=== PATIENT | male | born 1940 ===

== ENCOUNTER → 2016-11-20 | Outpatient (CLI) | payer MEDICARE, OTHER ==
[~2016-11-20] MED LIST: ADVIL200 MG PO; ALTACE10 MG; ALTACE2.5 MG PO; ASPIR 8181 MG PO; ASPIRIN LO-DOSE81 MG PO; CRESTOR10 MG; CRESTOR20 MG PO; CRESTOR40 MG PO; DOK100 MG PO; FEOSOL325 MG PO; NITROSTAT0.4 MG SL; PERCOCET 5-3251 EACH PO; PRILOSEC10 MG; PRILOSEC20 MG PO; THERAGRAN-M1 TAB PO; TOPROL XL25 MG PO; TYLENOL EXTRA500 MG PO; XARELTO15 MG PO
== END | disposition disaster alternative care site (69) ==
LOC: GRAD 09:27
DX: M54.30 Sciatica, unspecified side (principal); M51.36 Other intervertebral disc degeneration, lumbar region

== ENCOUNTER → 2016-12-22 | Outpatient (CLI) | payer MEDICARE, OTHER ==
--- NOTE | ~2016-12-22 | ENPV ---
Vascular Lower Extremities DVT Study Procedure Demographics Patient Name SALENA CHILDERS Date of Study 12/22/2016 Patient Number [id number] Gender Male Date of 1940 Age 76 Visit Number [id number] Height Accession Number [id number] Weight Room Number BSA BMI Referring Jaron Zhou MD Interpreting Gigi Clarke MD Physician Physician Physician Ordering Jaron Zhou End Finder Twisting Department Physician Lettuce Cutter De Urias T, [facility] Conclusions Summary There is sub-acute partially occlusive deep vein thrombosis in the right proximal superficial femoral vein extending into the popliteal vein. There is sub-acute occlusive deep vein thrombosis in the left proximal superficial femoral vein extending into the popliteal vein. Cannot rule out small calf thrombi bilaterally. Procedure Type of Study: Veins:Lower Extremities DVT Study, Lower Extremity Left, Venous Duplex Lower Extremity Bilateral. Indications for Study:Pain in Limb and Swelling. Appropriate Use Criteria:7 Patient Status:Routine. Study Location:Vascular Lab. Technical Quality:Adequate visualization. - Preliminary reported to:Dr. Leif Salmeron at 1445. Velocities are measured in cm/s ; Diameters are measured in cm Right Lower Extremities DVT Study Measurements Right 2D and Doppler Measurements + + + + +------+------+ + !Location !Visualized!Compressibility!Thrombosis!Signal!Reflux!Reflux ! ! ! ! ! ! ! !(sec) ! + + + + +------+------+ + !GSV Thigh !Yes !Yes !None !Phasic! ! ! + + + + +------+------+ + !Common !Yes !Yes !None !Phasic! ! ! !Femoral ! ! ! ! ! ! ! + + + + +------+------+ + !Prox !Yes !Partial !Sub-acute !Phasic! ! ! !Femoral ! ! ! ! ! ! ! + + + + +------+------+ + !Mid Femoral!Yes !Partial !Sub-acute !Absent! ! ! + + + + +------+------+ + !Dist !Yes !Yes !None !Phasic! ! ! !Femoral ! ! ! ! ! ! ! + + + + +------+------+ + !Popliteal !Yes !No !Sub-acute !Absent! ! ! + + + + +------+------+ + !PTV !Yes !Yes !None !Phasic! ! ! + + + + +------+------+ + !Peroneal !Yes !Yes !None !Phasic! ! ! + + + + +------+------+ + Left Lower Extremities DVT Study Measurements Left 2D and Doppler Measurements +---------+ + + + +------+--------+ !Location !Visualized!Compressibility!Thrombosis!Signal !Reflux!Reflux ! ! ! ! ! ! ! !(sec) ! +---------+ + + + +------+--------+ !GSV Thigh!Yes !Yes !None !Phasic ! ! ! +---------+ + + + +------+--------+ !Common !Yes !Partial !Sub-acute !Continuous! ! ! !Femoral ! ! ! ! ! ! ! +---------+ + + + +------+--------+ !Prox !Yes !No !Sub-acute !Absent ! ! ! !Femoral ! ! ! ! ! ! ! +---------+ + + + +------+--------+ !Mid !Yes !No !Sub-acute !Absent ! ! ! !Femoral ! ! ! ! ! ! ! +---------+ + + + +------+--------+ !Dist !Yes !No !Sub-acute !Absent ! ! ! !Femoral ! ! ! ! ! ! ! +---------+ + + + +------+--------+ !Popliteal!Yes !No !Sub-acute !Phasic ! ! ! +---------+ + + + +------+--------+ !PTV !Yes ! ! ! ! ! ! +---------+ + + + +------+--------+ !Peroneal !Yes ! ! ! ! ! ! +---------+ + + + +------+--------+ Signature dtt: MARSHALL PIERRE: 12/22/16 1412 Physician Self Edit
== END | disposition disaster alternative care site (69) ==
LOC: GCAR 13:52
DX: I80.9 Phlebitis and thrombophlebitis of unspecified site (principal); I82.411 Acute embolism and thrombosis of right femoral vein; I82.431 Acute embolism and thrombosis of right popliteal vein; I82.412 Acute embolism and thrombosis of left femoral vein; I82.432 Acute embolism and thrombosis of left popliteal vein

== ENCOUNTER 2017-01-01 09:53 | Inpatient (IN) | payer MEDICARE, OTHER ==
[~2017-01-01] VITALS: Ht 182.9 cm; Wt 84.4 kg
--- NOTE | ~2017-01-01 | ECHO ---
Transthoracic Echocardiography Report (TTE) Demographics Patient Name SALENA CHILDERS Date of Study 01/03/2017 Patient Number [id number] Visit Number [id number] Date of 1940 Room Number G6313 Gender Male Number Age 76 year(s) Referring Enriqueta Dozier Chaser Helper Jerardo Sheppard Physician MD Lili Zhou MD Physician Interpreting Enriqueta Dozier Web Application Developer Physician Supervising Ordering Enriqueta Dozier MD/MLP Physician Nurse Stress Cotton Candy Maker Conclusions Contractility Score Summary Normal Left Ventricular contractility was noted. Summary The estimated left ventricular ejection fraction is 50-55%,WM and internal dimension.Mild septal left ventricular hypertrophy. There is mild aortic stenosis by the Continuity Equation. The peak velocity is 2.17 m/s, the mean gradient is 9 mmHg, and the valve area based on the continuity equation is 1.77 cm2, stroke volume index is 32 ml/m2. The ascending aorta appears severely dilated. The maximum diameter measures 3.9 cm. Procedure Type of Study TTE procedure:2D Echocardiogram, M-Mode, Doppler , Color Doppler. Procedure Date Date: 01/03/2017 Start: 02:21 PM Study Location: Inpatient Portable Technical Quality: Adequate visualization Indications:Chest pain. Appropriate Use Criteria: 9 Patient Status: STAT HR: 67 bpm BP: 121/63 mmHg M-Mode/2D Measurements LV Diastolic Dimension: 5.87 cm LV Systolic Dimension: 3.36 cm LV Septum Diastolic: 1.17 cm LV PW Diastolic: 1.03 cm AO Root Dimension: 2.9 cm Cardiac Output: 4.48 l/min LA Dimension: 3 cm EF Estimated: 55 % LVOT: 2 cm LVOT VTI: 21.3 cm RV Base: 2.2 cm LV Stroke volume: 66.88 ml RV Length: 7.14 cm TAPSE: 1.39 cm TDI-S': 15.9 cm/s Doppler Measurements AV Peak Velocity: 2.17 m/s MV Peak E-Wave: 0.63 m/s AV Peak Gradient: 18.84 mmHg MV Peak A-Wave: 0.98 m/s AV Mean Gradient: 9 mmHg MV E/A Ratio: 0.64 LVOT Peak Velocity: 1.09 m/s MV P1/2t: 72 msec TR Gradient:22.66 mmHg PV Peak Velocity: 1.23 m/s Estimated RAP:5 mmHg PV Peak Gradient: 6.05 mmHg Estimated RVSP: 28 mmHg Estimated PASP: 27.66 mmHg E' Septal Velocity: 0.08 m/s A' Septal Velocity: 0.13 m/s E' Lateral Velocity: 0.05 m/s A' Lateral Velocity: 0.16 m/s Findings Left Ventricle The left ventricle is normal in size,EF and WM.Mild septal left ventricular hypertrophy. Right Ventricle Normal right ventricle structure and function. Left Atrium Normal left atrial size. Right Atrium Normal right atrial size. Mitral Valve Normal mitral valve structure and function. Aortic Valve The aortic valve is moderately sclerotic. There is mild aortic stenosis by the Continuity Equation. The peak velocity is 2.17 m/s, the mean gradient is 9 mmHg, and the valve area based on the continuity equation is 1.77 cm2, stroke volume index is 32 ml/m2. Tricuspid Valve Trivial tricuspid regurgitation by color Doppler. Pulmonic Valve Normal pulmonic valve structure and function. Pericardial Effusion No evidence of pericardial effusion. Miscellaneous The ascending aorta appears severely dilated. The maximum diameter measures 3.9 cm. Suboptimal subcostal window to evaluate the IVC and interatrial septum. Pleural Effusion No evidence of pleural effusion. Contractility Score LV regional wall motion:(0-Non visualized 1-Normal 2-Hypokinesis 3-Akinesis 4-Dyskinesis 5-Aneurysm) Signature dtt: Tasia Robison: 01/03/17 1421 Physician Self Edit
--- NOTE | ~2017-01-01 | PN ---
PATIENT'S NAME: SALENA CHILDERS [facility] AGE: 76 Y [address] ROOM: [facility] [place] [address] LOCATION: GPCU ADMIT DATE: 01/01/2017 Progress Notes DISCHARGE DATE: FAMILY PHYSICIAN: SARAH TEJADA MD ATTENDING PHYSICIAN: Loyda Pearson DATE OF SERVICE: 01/06/2017 This patient's H and H, and coagulation profile is stable. He has had no further chest pain but he will be having a cardiac catheterization after I evaluate his propensity for bleeding with respect to his hemorrhoidal disease as requested. His examination is stable. He will have his endoscopy and proctosigmoidoscopy today. MD MONSE AGUILAR/scotty /[id number] d: 01/06/17 0755 t: 01/31/17 1101, PROGRESS NOTES
--- NOTE | ~2017-01-01 | PN ---
PATIENT'S NAME: SALENA CHILDERS [facility] AGE: 76 Y [address] [place] [facility] [place] [address] LOCATION: GPCU ADMIT DATE: 01/01/2017 Progress Notes DISCHARGE DATE: FAMILY PHYSICIAN: SARAH TEJADA MD ATTENDING PHYSICIAN: Loyda Pearson DATE OF SERVICE: 01/07/2017 This patient had a reasonable night, tolerated his procedure well. He has had no bleeding or significant hemorrhoidal symptomatology. His laboratory values are stable and have been reviewed. He is planned to have a cardiac catheterization tomorrow. I would advise, at some point, him to have elastic band ligation of his grade 2-3 hemorrhoidal disease. MD MONSE AGUILAR/scotty /[id number] d: 01/07/17 0800 t: 01/31/17 1104, PROGRESS NOTES
--- NOTE | ~2017-01-01 | OR ---
PATIENT'S NAME: SALENA CHILDERS [facility] AGE: 76 Y [address] ROOM: [facility] [place] [place], [place] [address] LOCATION: GPCU ADMIT DATE: 01/01/2017 OR/Procedure Report DISCHARGE DATE: FAMILY PHYSICIAN: SARAH TEJADA MD ATTENDING PHYSICIAN: Loyda Villanueva SURGEON: Loyda Villanueva MD MARKETING STRATEGY ANALYST: Didi Tee. DATE OF PROCEDURE: 01/02/2017 PREOPERATIVE DIAGNOSIS: Lumbar spinal stenosis. POSTOPERATIVE DIAGNOSIS: Lumbar spinal stenosis. PROCEDURE PERFORMED: 1. Bilateral laminectomy with foraminotomy and decompression of neural elements without diskectomy at L3-L4. 2. Bilateral laminectomy with foraminotomy and decompression of neural elements without diskectomy at L4-L5. 3. Use of intraoperative microscope. ANESTHESIA: General. HISTORY: The patient is a 76-year-old gentleman with complaints of low back pain. MRI scan showed significant spinal stenosis at L3-L4 and L4-L5. Symptoms were becoming incapacitating per patient and surgery was therefore recommended. The procedure of laminectomy was discussed with the patient, benefits and risks were explained. With the patient's consent, he was brought to the operating room for surgery. PROCEDURE IN DETAIL: In the operating room, the patient was placed in a supine position. Anesthesia was induced. He was intubated and a Costello catheter was placed. He was then turned to a prone position on a Hi table taking care to protect all pressure points. The incision line was marked out in the midline of his lower back. The whole area was prepped and draped in a sterile fashion. Local anesthesia was infiltrated. The #10 blade was used to open the incision and to deepen it to the fascial layer. Self- retaining retractors were placed. The fascia was opened and the incision deepened further until the tips of the spinous processes became visible. Paraspinous muscles were dissected off the spinous processes and laminae of L3, L4, and L5. Self-retaining retractors were adjusted. Intraoperative x- ray was obtained to confirm that we were at the desired levels. The drill was used to drill down the laminae bilaterally at L3, L4, and L5. The Leksell rongeur was used to remove the laminae and spinous processes. The dura became visible. PATIENT'S NAME: SALENA CHILDERS [facility] AGE: 76 Y [address] ROOM: [place] [address] LOCATION: GPCU ADMIT DATE: 01/01/2017 OR/Procedure Report DISCHARGE DATE: FAMILY PHYSICIAN: SARAH TEJADA MD ATTENDING PHYSICIAN: Loyda Villanueva Findings: The patient had significant stenosis particularly at L4-L5. His bone was also quite soft and the patient may have osteoporosis. Laminectomy was then carried out bilaterally at L3, L4, and L5. The microscope was brought in, and under microscopic vision, the laminectomy was extended by shaving down the medial edges of the facets. The disks were seen that were bulging at L3-L4 and L4-L5 but not causing any compression as the laminae had already been removed on the back. The nerve roots were identified at L3-L4 and L4-L5 and foraminotomies were performed until the nerve roots could be seen going out into their respective foramina. Hemostasis was maintained at all times using bone wax, fibrillar, and Surgicel. Irrigation was used to wash out the debris. Having completed the laminectomy, a final check was made in the foramina and there was no residual compression seen. The incision was then closed in layers using appropriate suture materials. A sterile dressing was applied. The patient was rolled back to a supine position. His anesthesia was reversed. He was extubated and taken to the recovery room to complete his recovery. I was present during this procedure and performed every aspect of it, assisted at some stages by operating room personnel. There were no apparent intraoperative complications. Swabs, needles, and instruments were all accounted for at the end of the case. Estimated blood loss was less than 200 mL and there was no reason for blood transfusion. I expect the patient to benefit from this procedure. LOYDA VILLANUEVA MD CNO/modl /[id number] d: 01/05/17 0032 t: 01/12/17 0903, OPERATIVE SUMMARY
--- NOTE | ~2017-01-01 | CON ---
PATIENT'S NAME: SALENA CHILDERS [facility] AGE: 76 Y [address] ROOM: [address] [place] [address] LOCATION: GPCU ADMIT DATE: 01/01/2017 Consultation DISCHARGE DATE: FAMILY PHYSICIAN: SARAH TEJADA MD ATTENDING PHYSICIAN: Loyda Pearson REFERRING PHYSICIAN: MARSHALL PIERRE MD This is a patient who had a laminectomy, L3 to L5. He had bilateral deep venous thrombosis in which he had an IVC filter placed. However, he developed chest pain and was given nitroglycerin. Stress test and evaluation is in progress. He has not had a cardiac catheterization, which is planned. I have been asked by his physicians to evaluate him in terms of his known hemorrhoidal disease, whether possible anticoagulation following this would be an issue. The patient has had stents before. He is on Xarelto and aspirin. I have reviewed with him. He has had longtime hemorrhoidal problems. He did have a bowel movement today without blood, and I have checked his laboratory values which show reasonable hematocrit and no coagulopathy. When I examined him, he did not have any masses. He had external tags, and he has never had ginger hematochezia or melena. He states he has had a colonoscopy. PLAN: Doing an anoscopy and proctosigmoidoscopy tomorrow, and we will evaluate this. MD MONSE AGUILAR/scotty /[id number] d: 01/05/17 1838 t: 01/06/17 0740, CONSULTATION REPORT
--- NOTE | ~2017-01-01 | DS ---
PATIENT'S NAME: SALENA CHILDERS [facility] AGE: 76 Y [address] ROOM: [address] [place] [address] LOCATION: GPCU ADMIT DATE: 01/01/2017 Discharge Summary DISCHARGE DATE: 01/09/2017 FAMILY PHYSICIAN: Sarah Salmeron MD ATTENDING PHYSICIAN: Loyda Pearson FINAL DIAGNOSES: 1. Low back pain, persistent. 2. Status post lumbar back surgery per Dr. Pearson (see operative note). 3. Deep venous thrombosis bilateral, chronic, status post IVC filter after admission to prevent pulmonary emboli, Dr. Yu, see operative note. 4. Chest pain with abnormal stress echo, status post heart catheterization per Dr. Robison, nonobstructive coronary disease, requiring no intervention, see procedure note. 5. Hyperlipidemia. 6. Hypertension, essential. 7. Coronary artery disease, stable. 8. History of bilateral deep venous thrombosis, chronic. 9. Internal hemorrhoid disease. PROCEDURES: Proctoscopy and anoscopy per Dr. Wyatt Campos. HOSPITAL COURSE: Salena Childers had been seen as an outpatient by Dr. Pearson. He had also in the last several months been on Xarelto for DVT in his leg after falling and breaking his leg. He had been noncompliant with his Xarelto because he had intermittent hemorrhoid bleeding. In the outpatient area then he was set up for further evaluation and decision is to be made prior to his back surgery. Ended up being seen by Dr. Yu and was admitted from Dr. Yu's clinic to have his IVC filter placed. After that was done Dr. Pearson found time and schedule to take the patient to the operating room and performed his lumbar back surgery. The patient after back surgery developed chest pain, was seen at my request by Dr. Robison. Because of the patient's hemorrhoid bleeding report as an outpatient, I did have the patient seen by a local general surgeon Dr. Wyatt Campos. The patient underwent anoscopy, rigid proctoscopy showing internal hemorrhoid disease that could be banded as an outpatient, but no other mass or lesion was noted. Note, the patient had a recent colonoscopy that was otherwise normal. The patient was eventually then the day prior to dismissal taken to the labor economist per Dr. Robison and found to have nonobstructive coronary artery disease. The patient has met maximal hospital benefit. He is dismissed today 01/09/2017, to home on the med list shown. He should follow up in the office in a week. Follow up with the specialist as indicated per their notes. If he has chest pain, shortness of breath, or rectal bleeding, he will be seen back earlier. He did go back to [facility]. PATIENT'S NAME: SALENA CHILDERS [facility] AGE: 76 Y [address] ROOM: [place] [address] [facility] ADMIT DATE: 01/01/2017 Discharge Summary DISCHARGE DATE: 01/09/2017 FAMILY PHYSICIAN: Sarah Salmeron MD ATTENDING PHYSICIAN: Loyda Pearson SARAH SALMERON MD SWEAT BAND SEWER/modl /[id number] d: 01/09/171741 t: 01/14/17 1022, DISCHARGE SUMMARY
--- NOTE | ~2017-01-01 | OR ---
PATIENT'S NAME: SALENA CHILDERS [facility] AGE: 76 Y [address] ROOM: [place] [address] LOCATION: GPCU ADMIT DATE: 01/01/2017 OR/Procedure Report DISCHARGE DATE: FAMILY PHYSICIAN: SARAH TEJADA MD ATTENDING PHYSICIAN: Loyda Pearson SURGEON: Wyatt Campos MD MACHINE CONTAINER WASHER: DATE OF PROCEDURE: 01/06/2017 PREOPERATIVE DIAGNOSES: 1. Need for cardiac catheterization and probable anticoagulation. 2. History of internal hemorrhoids. POSTOPERATIVE DIAGNOSES: 1. Need for cardiac catheterization and probable anticoagulation. 2. History of internal hemorrhoids. 3. Grade 2 to 3 nonbleeding internal hemorrhoids. 4. External hemorrhoidal tags. PROCEDURES PERFORMED: 1. Digital examination. 2. Proctosigmoidoscopy. 3. Anoscopy. ANESTHESIA: None. INDICATIONS FOR OPERATION: This is a patient who had a laminectomy followed by some chest pain. He has been evaluated by the hub cutter. He requires a cardiac catheterization, and I have been asked to evaluate his degree of hemorrhoidal disease, which is well known in this patient, because of probability of post-angiographic intervention anticoagulation. The patient has had a long history of hemorrhoids and has had a negative colonoscopy otherwise. He presents for appropriate evaluation. DESCRIPTION OF PROCEDURE: The patient was brought to the operating room where he was placed in the left lateral decubitus position. Examination revealed external hemorrhoidal tags. Digital examination revealed no blood. No masses. At this point, proctosigmoidoscopy was performed to 7 inches. There was stool proximally. There was no blood. There were no masses. The mucosa looked satisfactory. As I withdrew, I could see hemorrhoidal disease. At this point, anoscopy was performed which showed grade 2 to 3 internal hemorrhoids, currently not bleeding. The scope was removed. The patient tolerated the procedure satisfactorily. From my perspective, certainly it is appropriate to proceed with cardiac catheterization, etc. At some point, he should have elastic band ligation of his hemorrhoids. PATIENT'S NAME: SALENA CHILDERS [facility] AGE: 76 Y [address] ROOM: [place] [address] LOCATION: GPCU ADMIT DATE: 01/01/2017 OR/Procedure Report DISCHARGE DATE: FAMILY PHYSICIAN: SARAH TEJADA MD ATTENDING PHYSICIAN: Loyda Pearson N MD MONSE AGUILAR/modl /[id number] d: 01/06/17 1200 t: 01/06/17 1726, OPERATIVE SUMMARY
--- NOTE | ~2017-01-01 | OR ---
PATIENT'S NAME: SALENA CHILDERS [facility] AGE: 76 Y [address] ROOM: [place] [address] LOCATION: [facility] ADMIT DATE: 01/01/2017 OR/Procedure Report DISCHARGE DATE: FAMILY PHYSICIAN: SARAH TEJADA MD ATTENDING PHYSICIAN: Loyda Pearson SURGEON: Vince Yu MD ENGINEERING ILLUSTRATOR: DATE OF PROCEDURE: 01/01/2017 PREOPERATIVE DIAGNOSIS: Deep venous thrombosis, unable to anticoagulate. POSTOPERATIVE DIAGNOSIS: Deep venous thrombosis, unable to anticoagulate. PROCEDURE PERFORMED: IVC filter placement. TOOL PLANNER: Joaquina Woodard ANESTHESIA: MAC local. ESTIMATED BLOOD LOSS: 5 mL. OPERATIVE FINDINGS: Filter in good position at the level of the renals. DESCRIPTION OF PROCEDURE: The patient was brought to the packing house laborer, placed supine on packing house laborer table, prepped and draped in a sterile manner. Preoperative time-out was performed. We gained access using ultrasound guidance to the right common femoral vein. We passed a NuScriptRxson wire through the 18-gauge needle. We then used a 10-Greek dilator to dilate the tract. We then brought the deployment sheath into position. We performed a venogram to identify the location of the renal vessels. Brought the filter at the level of the renal vessels and deployed it with a good upright position. Sheath was removed. Pressure was held for 10 minutes. The patient tolerated the procedure well and transferred to recovery room and then back to the floor. VINCE YU MD FKM/modl /[id number] d: 01/02/175 t: 01/03/17 1715, OPERATIVE SUMMARY
--- NOTE | ~2017-01-01 | CON ---
PATIENT'S NAME: SALENA CHILDERS [facility] AGE: 76 Y [address] ROOM: G6313 [place], [place] [address] LOCATION: GPCU ADMIT DATE: 01/01/2017 Consultation DISCHARGE DATE: FAMILY PHYSICIAN: SARAH TEJADA MD ATTENDING PHYSICIAN: Loyda Pearson DATE OF CONSULTATION: 01/03/2017 REFERRING PHYSICIAN: MARSHALL PIERRE MD Dear Dr. Pearson: Thank you for asking me to see Mr. Childers who is a 76-year-old male patient who underwent spinal stenosis surgery yesterday. Today in Neurotrauma Unit, he was eating his lunch which was a dry turkey sandwich which started to cause him significant lower chest pain associated with some shortness of breath. The patient at that time called the nurse, and an EKG was done, which showed no evidence of ST-T wave changes. I was called to see him on consultation. Because he had surgery yesterday and it was followed by a fair amount of oozing, heparin was considered to be not a good idea. He was, however, given four baby aspirins and a single sublingual nitroglycerin, which lowered the chest discomfort from 6 to 4. He was transferred to PCU where he was initiated on IV nitroglycerin which lowered the pain level to less than 1 at this time. Currently, he is pain-free. The patient has no history of shortness of breath. 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 He is in functional class 2 with no paroxysmal nocturnal dyspnea or orthopnea. He denies lightheadedness, dizziness, syncope, presyncope, or palpitations. There is no history of ankle swelling. He is not on any structured exercise program, but he is active in his line of work. There is no prior history of MN or angina or nitroglycerin use. The patient has had stents put in in 2009 and 2010. The patient has no history of hypertension, type 2 diabetes, elevated cholesterol, or tobacco abuse. He denies family history of premature coronary artery disease. There is no prior history of MN, angina, or nitroglycerin use. There is no history of rheumatic fever, heart murmur, heart failure, dilated or enlarged heart, or any diagnosed arrhythmias. MEDICATIONS: 1. Omeprazole 20 mg a day. PATIENT'S NAME: SALENA CHILDERS [facility] AGE: 76 Y [address] ROOM: [place] [address] LOCATION: GPCU ADMIT DATE: 01/01/2017 Consultation DISCHARGE DATE: FAMILY PHYSICIAN: SARAH TEJADA MD ATTENDING PHYSICIAN: Loyda Pearson 2. Ramipril 2.5 mg a day. 3. Aspirin 81 mg a day. 4. Rosuvastatin 40 mg a day. 5. Rivaroxaban 15 mg once a day. 6. Ibuprofen 200 mg every day. 7. Nitroglycerin as needed. 8. Acetaminophen 500 mg once a day. 9. Docusate sodium 100 mg a day. ALLERGIES: TETRACYCLINE. PAST MEDICAL HISTORY: 1. Right femoral fracture about a year ago. 2. Appendectomy. 3. Bilateral carpal tunnel surgery. 4. Three stents placed. 5. Hernia repair. 6. Removal of a testicle. 7. Surgery on the remaining testicle for swelling. SOCIAL HISTORY: The patient is . He denies abusing alcohol. His appetite and weight are stable. Sleep is fair. FAMILY HISTORY: No premature coronary artery disease. REVIEW OF SYSTEMS: A 12-point review of systems revealed the following positives. 1. Hay fever. 2. Dysphagia. 3. DVT, both lower extremities, which is old. There is no new DVT noticed. 4. Nocturia. 5. DJD. 6. Skin cancer. PHYSICAL EXAMINATION: VITAL SIGNS: On examination, his blood pressure is 130/80, heart rate is in the 60s and regular, respirations 18, afebrile. HEENT: Normal. NECK: Supple with no JVD, thyromegaly, lymphadenopathy, or carotid bruit. HEART: PMI is not well located. First and second heart sounds are regular. There are no added sounds. CHEST: Clear. PATIENT'S NAME: SALENA CHILDERS [facility] AGE: 76 Y [address] ROOM: [place] [address] LOCATION: GPCU ADMIT DATE: 01/01/2017 Consultation DISCHARGE DATE: FAMILY PHYSICIAN: SARAH TEJADA MD ATTENDING PHYSICIAN: Loyda Pearson ABDOMEN: Soft. EXTREMITIES: No edema. CENTRAL NERVOUS SYSTEM: Intact. ASSESSMENT: A 76-year-old male patient with known coronary artery disease, on appropriate statin therapy, postoperatively having prolonged chest pain. We will rule him out for MN and get an echocardiogram done. If he rules out for MN, we will plan on doing a stress Cardiolite study tomorrow in the form of a Lexiscan Cardiolite study. Again, I appreciate this opportunity to participate in the care of Mr. Childers. MD HERVE ORTA/scotty /[id number] d: 01/04/17 0006 t: 01/10/17 1058, CONSULTATION REPORT
--- NOTE | ~2017-01-01 | CON ---
PATIENT'S NAME: SALENA CHILDERS [facility] AGE: 76 Y [address] ROOM: [place] [address] LOCATION: GPCU ADMIT DATE: 01/01/2017 Consultation DISCHARGE DATE: FAMILY PHYSICIAN: SARAH TEJADA MD ATTENDING PHYSICIAN: Loyda Pearson REFERRING PHYSICIAN: MARSHALL PIERRE MD HISTORY OF PRESENT ILLNESS: This is a gentleman who underwent laminectomy L3 to L5 a few days ago. He had an IVC filter placed for bilateral DVT. He has had, however, chest pain. He is in the process of being evaluated with a stress test, and they plan on catheterization, but would like evaluation of his known hemorrhoidal disease. He is on Xarelto and aspirin. He is not on Coumadin. On discussing with the patient, the patient has had a longstanding history of hemorrhoidal bleeding. He has been evaluated. He does not have a colonic process or an upper tract process. He has never been treated for his hemorrhoids. He is bothered by them quite a bit. He has had no abdominal surgery except for appendectomy. MEDICATIONS: Reviewed. ALLERGIES: REVIEWED. REVIEW OF SYSTEMS: Fourteen points surgically noncontributory. PHYSICAL EXAMINATION: VITAL SIGNS: Afebrile. Vital signs stable. GENERAL: Looks well. Color good. CHEST: Clear. ABDOMEN: Negative. EXTREMITIES: Negative. RECTAL: Significant external tags. Digital examination is negative for masses, and no blood. PLAN: Check CBC and coagulation profile. He will have anoscopy and rigid proctosigmoidoscopy tomorrow. JOE FIELDS MD /modl PATIENT'S NAME: SALENA CHILDERS [facility] AGE: 76 Y [address] ROOM: [place] [address] LOCATION: GPCU ADMIT DATE: 01/01/2017 Consultation DISCHARGE DATE: FAMILY PHYSICIAN: SARAH TEJADA MD ATTENDING PHYSICIAN: Loyda Pearson /[id number] d: 01/05/17 1605 t: 01/06/17 0737, CONSULTATION REPORT
--- NOTE | ~2017-01-01 | ESTC ---
Cardiac Perfusion Imaging Demographics Patient Name LISETH Zhou Gender Male Patient Number [id number] Race Visit Number [id number] [place] [id number] Room Number G6313 Accession Number [id number] Height 72 inches Date of 1940 Weight 186.3 pounds Interpreting Enriqueta Dozier Date of study 01/04/2017 Physician Supervising /DARRELL MARROQUIN Technologist Ellie Gomez MD Ordering Physician Enriqueta Dozier Stress MD application support technician Stress ECG Reading Enriqueta Dozier Nurse Janet Santa Physician puller out Admit Source:Emergency department. Procedure Type: Nuclear Stress Test:Pharmacological, Lexiscan, Cardiolite Stress Test Procedure Start time: 01/04/2017 09:19 Indications: Chest tightness. Risk Factors The patient risk factors include:prior PCI on 10/27/2009;peripheral arterial disease, hypercholesterolemia, hypertension, last creatinine: 1.1 mg/dl, dyslipidemia, prior SD and creatinine clearance: 66.15 ml/min. Conclusions Summary No TID. Small inferolateral moderate reversible defect. LVEF:60% Normal wall motion. Stress Protocols Resting ECG RSR. Pre-stress physical exam: Un changed. Peak HR:98 bpm HR/BP product:[id number] Peak BP:162/89 mmHg Predicted HR: 142 bpm % of predicted HR: 69 ECG Findings No ischemia. Arrhythmias Bigeminal PVCs. Symptoms SOB. Nausea.Vomitted once. Cold. Tight in chest:2 to 3 on 1-10. Stress Interpretation Lexiscan with normal hemodynamic response. Chest pain,SOB and nausea. No ischemia. Bigeminal PVCs. Imaging Results High risk findings Summed scores - Summed stress score: 8 - Summed rest score: 14 - Summed difference score: -6 Stress ejection Ejection fraction:60 % EDV :158 ml ESV :63 ml Stroke volume :95 ml LV mass :167 gr LV size:Normal Normal LV function Imaging Protocols Rest Stress Isotope:Tc99m Sestamibi IV Isotope: Tc99m Sestamibi IV Isotope dose:12.5 mCi Isotope dose:35.4 mCi Date:01/04/2017 07:52 Date:01/04/2017 09:40 Technique: SPECT Technique: Gated Supine SPECT Supine IV remains in place after procedure. Scan Time:45-60 minutes post Scan Time:45-60 minutes post injection injection Procedure Medications - Regadenoson (Lexiscan) 0.4 mg IV over 10-15 sec. I.V. 0.4 mg. Medical History Other Previous Procedures + + +-------+ !Test name !Date !Remarks! + + +-------+ !Stress testing with SPECT MPI !01/03/2017! ! + + +-------+ Admission Medications + +------+ + + +---------+ !Name !Dosage!Times per day !Start date !Stop date !Details ! + +------+ + + +---------+ !Aspirin (any) ! ! ! ! ! ! + +------+ + + +---------+ !Clopidogrel ! ! ! ! ! ! + +------+ + + +---------+ !Beta Felipe (any) ! ! ! ! ! ! + +------+ + + +---------+ !Statin (any) ! ! ! ! ! ! + +------+ + + +---------+ Admission Data Admission date: 01/01/2017 Admission Time: 09:53 Hospital Status: Inpatient. Signatures dtt: Tasia Robison dtd: 01/04/17 0919 Physician Self Edit
--- NOTE | ~2017-01-01 | CATH ---
Cardiac Diagnostic + PCI Report Demographics Patient Name LISETH Zhou Gender Male Date of 1940 Age 76 year(s) Patient Number [id number] Date of Study 01/08/2017 Visit Number [id number] Room Number G63[address] [place] [id number] Ht 183 cm Wt 84.5 kg Referring Jaron Barros Abelardo Primary Physician Physician Performing Enriqueta Secondary Physician Physician Tasia NOLASCO Diagnostic Enriqueta Assisting Physician Physician Tasia NOLASCO Interventional Enriqueta Physician Toy Assembler Wood Physician Tasia NOLASCO Findings and Conclusions Diagnostic Findings and Conclusion Normal LVEDP (4). Mild diffuse CAD. Stents in LAD and Diag patent with 30-50% ISR. Diagnostic Recommendations IVUS of LMCA. Interventional Findings and Conclusion Ostial LMCA 40% stenosis with IVUS area 16 mm2. Interventional Recommendations Medical therapy with DPT for 3-6 months. High intensity statin therapy. Procedure Description The patient was brought to the diagnostic cardiac catheterization-EP laboratory in the fasting, non-sedated state. Informed consent was obtained in the written and verbal form after the risks and benefits were explained. The patient had no further questions and agreed to proceed. The planned puncture-incision site(s) were shaved and prepped with ChloraPrep and draped in the usual sterile manner. Conscious sedation and pain control medications were delivered by a registered nurse under physician guidance. Surface ECG rhythm, blood pressure measurement, and pulse oximetry were monitored throughout the procedure. Arterial access. The access site was infiltrated with lidocaine. The vessel was entered with the Seldinger technique. A sheath was advanced into the vessel and used for catheter placement. Selective left coronary angiography. A catheter was advanced into the left coronary vessel ostium under Fluoroscopic guidance. Contrast was injected by hand. Images were obtained in multiple projections. Selective right coronary angiography. A catheter was advanced into the right coronary vessel ostium under fluoroscopic guidance. Contrast was injected by hand. Images were obtained in multiple projections. Left heart catheterization. A catheter was advanced across the aortic valve to the left ventricle under fluoroscopic guidance. Resting hemodynamics were obtained. IVUS was performed. The vessel was cannulated. An .014 interventional wire was advanced across the lesson into the distal vessel. The IVUS catheter was advanced into position and imaging was performed. Vessel dimensions were measured. Arterial artery hemostasis was achieved. The patient was transferred to a regular nursing floor via cart accompanied by a nurse. The patient left the laboratory in stable condition. Diagnostic Cath Status: Urgent Interventional Cath Status: Urgent Procedure Procedure Type Diagnostic procedure:Angiography:, Coronary Angios /[facility] PCI procedure:Additional Imaging:, IVUS:, Initial Vessel Indications: Chest pain and Abnormal Stress Test. The procedure was explained in detail to the patient. Risks, complications and alternative treatments were reviewed. Written consent was obtained. Medications Reviewed with Patient prior to Procedure. Angiographic Findings Dominance: Right Cardiac Arteries and Lesion Findings LMCA: Ostial stenosis with haziness. Lesion on LMCA: Ostial.40% stenosis .The guidewire cross was successful. IVUS was performed. Pre PCI IVUS Devices used - WSO2 IVUS catheter. Number of passes: 1. LAD: Moderate diffuse disease. There is a previous stent on Mid LAD Mid subsection showing diffuse ISR. Lesion on Mid LAD: Mid subsection.30% stenosis . The lesion was previously treated . Comments:In-stent Restenosis noted. Lesion on 1st Diag: Ostial.50% stenosis . LCx: Mild diffuse disease. RCA: Mild to moderate diffuse disease. Coronary Tree Procedure Data Procedure Date Date: 01/08/2017Start: 05:14 PMEnd: 06:15 PM Entry Locations - Retrograde Percutaneous access was performed through the Right Femoral artery (Primary location). A 7 Fr sheath was inserted. Hemostasis was successfully obtained using Angio-Seal STS PLUS ([employer]. [employer]). Closure Comments: Deployed by Kathie Akhtar. . Procedure Medications Order and Administration + + + + + !Time !Medication !Dosage !Route ! + + + + + !01/08/2017 05:16 !Versed !1 mg !I.V. ! !PM ! ! ! ! + + + + + !01/08/2017 05:17 !Fentanyl !50 mcg !I.V. ! !PM ! ! ! ! + + + + + !01/08/2017 05:20 !0.9% NaCl !250 ml !I.V. bolus ! !PM ! ! ! ! + + + + + !01/08/2017 05:35 !Angiomax (Bivalirudin) !65 mg !I.V. bolus ! !PM !(ACC_5) ! ! ! + + + + + !01/08/2017 05:37 !Angiomax (Bivalirudin) !1.75 mg/kg/hr!I.V. drip ! !PM !(ACC_5) ! ! ! + + + + + !01/08/2017 05:59 !Angiomax (Bivalirudin) ! !I.V. drip ! !PM !(ACC_5) ! ! ! + + + + + Devices Used - A6 Fr. BS JR 4 Diag. Catheterwas used for:Right coronary angiography. - A6 Fr. BS JL 4 Diag. Catheterwas used for:Left coronary angiography. - A6 Fr. JL 4 JJ Guide Catheterwas used for:LAD Intervention. Contrast Material - Isovue 595002 ml Fluoroscopy Time: Diagnostic: 7:30 minutes. Total: 7:30 minutes. Fluoroscopy Dose: Diagnostic: 1603 mGy. Total: 1603 mGy. Estimated Blood Loss: 10 ml. Medical History Performed Procedures and Imaging Results - Stress testing with SPECT MPIwas performed on 01/03/2017. Results were: Positive. Risk Factors The patient risk factors include:prior PCI on 10/27/2009;peripheral arterial disease, hypercholesterolemia, hypertension, last creatinine: 1.1 mg/dl, creatinine clearance: 66.15 ml/min, dyslipidemia and prior NM . Admission Data Admission Date: 01/01/2017 Admission Time: 09:53 AM Admit Source: Emergency department Insurance Payors: Medicare. Admission Medications + +------+------+ + + + + !Medication !Dosage!Times !Last !Last !Administered !Comments ! ! ! !Per !Delivery !Delivery ! ! ! ! ! !Day !Date !Time ! ! ! + +------+------+ + + + + !Aspirin ! ! ! ! ! ! ! !(any) ! ! ! ! ! ! ! + +------+------+ + + + + !Clopidogrel ! ! ! ! ! ! ! + +------+------+ + + + + !Beta Felipe! ! ! ! ! ! ! !(any) ! ! ! ! ! ! ! + +------+------+ + + + + !Statin (any)! ! ! ! ! ! ! + +------+------+ + + + + Clinical Evaluation Leading to Procedure - The patient's CAD presentation was assessed as: Unstable angina. - The patient's anginal syndrome during the past two weeks was assessed as: Class III according to the [place] Cardiovascular Society Classification System (CCS). Anti-anginal medications were prescribed during the past two weeks. The medication is: Beta Blockers. Hemodynamics Condition: Rest O2 Consumption: Estimated: 231.41Heart Rate: 63 bpm Pressures (mmHg) +-----+ + !Site !Pressure ! +-----+ + !LV !97/0 ,4 ! +-----+ + !LV !100/0 ,4 ! +-----+ + !LV !100/0 ,4 ! +-----+ + !AO !96/54 (72) ! +-----+ + !AO !127/60 (88) ! +-----+ + Shunts Oxygen Values O2 Capacity 137.36 O2 Consumption 231.41 Discharge Data Discharge Date: 01/09/2017 Hospital Status: Inpatient Signatures dtt: Tasia Robison dtd: 01/08/17 1714 Physician Self Edit
[~2017-01-01 09:53] MED LIST changes: -DOK100 MG PO; -PERCOCET 5-3251 EACH PO; -TOPROL XL25 MG PO; -TYLENOL EXTRA500 MG PO
[2017-01-01 10:29] LABS: BASOPHIL % 0.7 %; EOSINOPHIL # 0.2 K/uL (0.0-0.5); HEMATOCRIT 37.9 % (37.0-53.0); HEMOGLOBIN 11.7 g/dL (11.0-16.0); IMMATURE GRANULOCYTE % 0.2 %; LYMPHOCYTE # 1.4 K/uL (0.8-4.0); LYMPHOCYTE % 22.8 %; MCH 28.1 pg (27.0-34.0); MCHC 30.9 gm/dL (32.0-36.5); MCV 91.1 fl (83.0-98.0); MONOCYTE # 0.5 K/uL (0.0-1.0); MONOCYTE % 8.4 %; MPV 10.6 fl (9.4-12.4); NEUTROPHIL # (ANC) 3.9 K/uL (1.4-9.0); NEUTROPHIL % 64.9 %; NRBC % 0 /100WBC (0-0.00); PLATELET COUNT 178 K/uL (150-450); RDW-CV 16.3 % (11.9-14.6)
[2017-01-01 10:31] LABS: RBC 4.16 M/uL (3.50-5.50)
[2017-01-01] MEDS ORDERED: TYLENOL EXTRA500 MG PO (10:31)
[2017-01-01] MEDS ORDERED: DOK100 MG PO (10:32)
[2017-01-01 10:41] LABS: ANION GAP 9.4 (10.0-19.0); BLOOD UREA NITROGEN 20 mg/dL (6-24); CALCIUM 8.3 mg/dL (8.5-10.5); CHLORIDE 110 mMol/L (96-110); CO2 27 mMol/L (22-32); CREATININE 1.1 mg/dL (0.6-1.3); ESTIMATED GFR (MDRD EQUATION) > 60; POTASSIUM 4.4 mMol/L (3.7-5.1); SODIUM 142 mMol/L (135-145)
[2017-01-02 03:53] LABS: BASOPHIL % 0.4 %; EOSINOPHIL # 0.2 K/uL (0.0-0.5); EOSINOPHIL % 3.8 %; HEMATOCRIT 33.5 % (37.0-53.0); HEMOGLOBIN 10.5 g/dL (11.0-16.0); IMMATURE GRANULOCYTE % 0.2 %; LYMPHOCYTE # 1.4 K/uL (0.8-4.0); LYMPHOCYTE % 25.8 %; MCH 28.5 pg (27.0-34.0); MCHC 31.3 gm/dL (32.0-36.5); MCV 90.8 fl (83.0-98.0); MONOCYTE # 0.6 K/uL (0.0-1.0); MPV 10.6 fl (9.4-12.4); NEUTROPHIL # (ANC) 3.2 K/uL (1.4-9.0); NEUTROPHIL % 58.8 %; NRBC % 0 /100WBC (0-0.00); PLATELET COUNT 164 K/uL (150-450); RBC 3.69 M/uL (3.50-5.50); WBC 5.5 K/uL (4.0-11.0)
[2017-01-02 04:10] LABS: ALBUMIN 2.8 gm/dL (3.5-5.0); ANION GAP 10.2 (10.0-19.0); BLOOD UREA NITROGEN 16 mg/dL (6-24); CHLORIDE 109 mMol/L (96-110); CO2 24 mMol/L (22-32); CREATININE 0.9 mg/dL (0.6-1.3); ESTIMATED GFR (MDRD EQUATION) > 60; PHOSPHORUS 3.3 mg/dL (2.5-4.9); POTASSIUM 4.2 mMol/L (3.7-5.1); SODIUM 139 mMol/L (135-145)
[2017-01-03 14:02] LABS: ANION GAP 12.2 (10.0-19.0); CREATININE 1.2 mg/dL (0.6-1.3); POTASSIUM 4.2 mMol/L (3.7-5.1); TOTAL BILIRUBIN 0.6 mg/dL (0.0-1.5); TOTAL PROTEIN 6.2 g/dL (6.0-8.4)
[2017-01-03 14:25] LABS: BASOPHIL % 0.2 %; EOSINOPHIL # 0.1 K/uL (0.0-0.5); HEMATOCRIT 33.3 % (37.0-53.0); HEMOGLOBIN 10.5 g/dL (11.0-16.0); IMMATURE GRANULOCYTE % 0.2 %; LYMPHOCYTE # 1.2 K/uL (0.8-4.0); LYMPHOCYTE % 12.5 %; MCH 28.3 pg (27.0-34.0); MCHC 31.5 gm/dL (32.0-36.5); MCV 89.8 fl (83.0-98.0); MONOCYTE # 1.1 K/uL (0.0-1.0); MONOCYTE % 11.8 %; NEUTROPHIL # (ANC) 6.9 K/uL (1.4-9.0); NEUTROPHIL % 74.3 %; NRBC % 0 /100WBC (0-0.00); PLATELET COUNT 159 K/uL (150-450); RBC 3.71 M/uL (3.50-5.50); RDW-CV 16.2 % (11.9-14.6); WBC 9.2 K/uL (4.0-11.0)
[2017-01-03 14:43] LABS: ANION GAP 9.3 (10.0-19.0); BLOOD UREA NITROGEN 18 mg/dL (6-24); CHLORIDE 107 mMol/L (96-110); CO2 26 mMol/L (22-32); CREATININE 1.2 mg/dL (0.6-1.3); ESTIMATED GFR (MDRD EQUATION) 59; POTASSIUM 4.3 mMol/L (3.7-5.1); SODIUM 138 mMol/L (135-145)
[2017-01-05 09:14] LABS: BASOPHIL % 0.2 %; EOSINOPHIL # 0.2 K/uL (0.0-0.5); EOSINOPHIL % 1.4 %; HEMATOCRIT 33.9 % (37.0-53.0); HEMOGLOBIN 10.8 g/dL (11.0-16.0); IMMATURE GRANULOCYTE % 0.4 %; LYMPHOCYTE # 1.4 K/uL (0.8-4.0); LYMPHOCYTE % 13.3 %; MCH 28.8 pg (27.0-34.0); MCHC 31.9 gm/dL (32.0-36.5); MCV 90.4 fl (83.0-98.0); MONOCYTE # 1.1 K/uL (0.0-1.0); MONOCYTE % 10.3 %; MPV 10.9 fl (9.4-12.4); NEUTROPHIL # (ANC) 7.8 K/uL (1.4-9.0); NEUTROPHIL % 74.4 %; NRBC % 0 /100WBC (0-0.00); PLATELET COUNT 171 K/uL (150-450); RBC 3.75 M/uL (3.50-5.50); RDW-CV 16.7 % (11.9-14.6); WBC 10.4 K/uL (4.0-11.0)
[2017-01-05 09:24] LABS: INR - (THERAPEUTIC) 0.97 (0.92-1.07); PROTIME 10.2 SECONDS (9.8-11.4); PTT 27 SECONDS (25-32)
[2017-01-07 05:45] LABS: BASOPHIL % 0.5 %; EOSINOPHIL # 0.4 K/uL (0.0-0.5); EOSINOPHIL % 5.4 %; HEMOGLOBIN 10.1 g/dL (11.0-16.0); IMMATURE GRANULOCYTE % 0.3 %; LYMPHOCYTE # 1.5 K/uL (0.8-4.0); LYMPHOCYTE % 19.7 %; MCH 28.5 pg (27.0-34.0); MCHC 31.6 gm/dL (32.0-36.5); MCV 90.4 fl (83.0-98.0); MONOCYTE % 12.7 %; MPV 9.7 fl (9.4-12.4); NEUTROPHIL # (ANC) 4.7 K/uL (1.4-9.0); NEUTROPHIL % 61.4 %; NRBC % 0 /100WBC (0-0.00); PLATELET COUNT 159 K/uL (150-450); RBC 3.54 M/uL (3.50-5.50); RDW-CV 16.3 % (11.9-14.6); WBC 7.6 K/uL (4.0-11.0)
[2017-01-07 06:03] LABS: ALBUMIN 2.6 gm/dL (3.5-5.0); ALK PHOS 65 IU/L (33-138); ALT 30 IU/L (12-78); ANION GAP 12.5 (10.0-19.0); AST 34 IU/L (10-40); BLOOD UREA NITROGEN 22 mg/dL (6-24); CALCIUM 8.1 mg/dL (8.5-10.5); CHLORIDE 105 mMol/L (96-110); CO2 28 mMol/L (22-32); CREATININE 1.1 mg/dL (0.6-1.3); ESTIMATED GFR (MDRD EQUATION) > 60; POTASSIUM 4.5 mMol/L (3.7-5.1); SODIUM 141 mMol/L (135-145); TOTAL PROTEIN 6.3 g/dL (6.0-8.4)
[2017-01-07 06:05] LABS: TOTAL BILIRUBIN 0.8 mg/dL (0.0-1.5)
[2017-01-09] MEDS ORDERED: TOPROL XL25 MG PO (09:28)
[2017-01-09] MEDS ORDERED: PERCOCET 5-3251 EACH PO (09:32)
== END 2017-01-09 12:00 | disposition disaster alternative care site (69) | DRG 516 ==
LOC: GPCU 09:53 → GNTU 09:53 → GPCU 01-03 16:20
PROVIDERS: Family Medicine; Internal Medicine Interventional Cardiology; Surgery; Surgery Vascular Surgery; ADMIT Neurological Surgery
PROC: 06H03DZ Insertion of Intraluminal Device into Inferior Vena Cava, Percutaneous Approach (ICD-10-PCS; 2017-01-01)
PROC: 01NB0ZZ Release Lumbar Nerve, Open Approach (ICD-10-PCS; principal; 2017-01-02)
PROC: 0DJD8ZZ Inspection of Lower Intestinal Tract, Via Natural or Artificial Opening Endoscopic (ICD-10-PCS; 2017-01-06)
PROC: B240ZZ3 Ultrasonography of Single Coronary Artery, Intravascular (ICD-10-PCS; 2017-01-08)
PROC: B2111ZZ Fluoroscopy of Multiple Coronary Arteries using Low Osmolar Contrast (ICD-10-PCS; 2017-01-08)
PROC: 4A023N7 Measurement of Cardiac Sampling and Pressure, Left Heart, Percutaneous Approach (ICD-10-PCS; 2017-01-08)
DX: M48.06 Spinal stenosis, lumbar region (principal); I82.512 Chronic embolism and thrombosis of left femoral vein; D64.9 Anemia, unspecified; I82.532 Chronic embolism and thrombosis of left popliteal vein; I25.110 Atherosclerotic heart disease of native coronary artery with unstable angina pectoris; I10 Essential (primary) hypertension; E78.5 Hyperlipidemia, unspecified; K64.2 Third degree hemorrhoids; K64.1 Second degree hemorrhoids; K64.4 Residual hemorrhoidal skin tags; K21.9 Gastro-esophageal reflux disease without esophagitis; K44.9 Diaphragmatic hernia without obstruction or gangrene; Z95.5 Presence of coronary angioplasty implant and graft; Z79.01 Long term (current) use of anticoagulants; Z79.82 Long term (current) use of aspirin; Z91.14 Patient's other noncompliance with medication regimen
CPT/HCPCS: A9500; C1753; C1760; C1880; C1887; J0583; J0690; J1644; J2250; J2785; J2795; J3010; J7030; J7060

== ENCOUNTER → 2017-03-09 | Outpatient (CLI) | payer MEDICARE, OTHER ==
[~2017-03-09] MED LIST changes: +DOK100 MG PO; +PERCOCET 5-3251 EACH PO; +TOPROL XL25 MG PO; +TYLENOL EXTRA500 MG PO
[2017-03-09 11:13] LABS: ANION GAP 9.8 (10.0-19.0); BLOOD UREA NITROGEN 22 mg/dL (6-24); CALCIUM 8.3 mg/dL (8.5-10.5); CHLORIDE 113 mMol/L (96-110); CO2 23 mMol/L (22-32); CREATININE 0.9 mg/dL (0.6-1.3); ESTIMATED GFR (MDRD EQUATION) > 60; POTASSIUM 4.8 mMol/L (3.7-5.1); SODIUM 141 mMol/L (135-145)
== END ==
LOC: LGSOS 10:46
PROVIDERS: Internal Medicine Interventional Cardiology
DX: E78.5 Hyperlipidemia, unspecified (principal)

== ENCOUNTER → 2017-03-09 | Outpatient (CLI) | payer MEDICARE, OTHER ==
--- NOTE | ~2017-03-09 | ENPV ---
Carotid Duplex Study Demographics Patient Name SALENA CHILDERS Date of Study 03/09/2017 Patient Number [id number] Gender Male Date of 1940 Age 76 Visit Number [id number] Height Accession Number [id number] Weight Room Number BSA BMI Referring Enriqueta Brito MD Physician Physician Physician Loni Robison Die Maintenance Technician Physician Tasia NOLASCO Travertine Installer Pari Brito BS, RT Conclusions Summary The right vertebral artery is present with antegrade flow. The left vertebral artery is present with antegrade flow. Calcific plaque at the bulb and proximal internal carotids bilaterally. No evidence of stenosis in the right internal carotid artery. No evidence of stenosis in the left internal carotid artery. Procedure Type of Study: Cerebral:Carotid, Carotid Doppler Bilateral. Indications for Study:Transient or sudden visual loss. Patient Status:Routine. Study Location:Vascular Lab. Technical Quality:Adequate visualization. - Preliminary reported to:Dr. Robison. Velocities are measured in cm/s ; Diameters are measured in cm Carotid Right Measurements Carotid Left Measurements + +--------+--------+ + + + +--------+ --------+ + + !Location !PSV !EDV !Angle !%Stenosis ! !Location !PSV ! EDV !Angle !%Stenosis ! + +--------+--------+ + + + +--------+ --------+ + + !Prox CCA !127 !20 !60 ! ! !Prox CCA !82 ! 13 !60 ! ! + +--------+--------+ + + + +--------+ --------+ + + !Dist CCA !115 !24 !60 ! ! !Dist CCA !83 ! 18 !60 ! ! + +--------+--------+ + + + +--------+ --------+ + + !Prox ICA !68 !26 !60 ! ! !Prox ICA !36 ! 23 !60 ! ! + +--------+--------+ + + + +--------+ --------+ + + !Dist ICA !58 !18 !42 ! ! !Dist ICA !49 ! 19 !24 ! ! + +--------+--------+ + + + +--------+ --------+ + + !Prox ECA !130 ! !60 ! ! !Prox ECA !119 ! !60 ! ! + +--------+--------+ + + + +--------+ --------+ + + !Vertebral !28 ! !60 ! ! !Vertebral !51 ! !60 ! ! + +--------+--------+ + + + +--------+ --------+ + + !Subclavian !113 ! !60 ! ! !Subclavian !107 ! !60 ! ! + +--------+--------+ + + + +--------+ --------+ + + - There is antegrade vertebral flow noted on the right side. - There is antegrade verte bral flow noted on the left side. - Add'l Measurements:ICAPSV/CCAPSV 0.54.ICAEDV/CCAEDV 1.3. - Add'l Measurements:ICAPS V/CCAPSV 0.6.ICAEDV/CCAEDV 1.75. Signature dtt: Darinel Ochoa dtneha: 03/09/17 1210 Physician Self Edit
== END | disposition disaster alternative care site (69) ==
LOC: GCAR 11:54
DX: I65.23 Occlusion and stenosis of bilateral carotid arteries (principal)

== ENCOUNTER → 2017-03-09 | Outpatient (CLI) | payer MEDICARE, OTHER | END | disposition disaster alternative care site (69) | LOC: GRAD 13:23 | DX: H21.561 Pupillary abnormality, right eye (principal) | CPT/HCPCS: A9577 ==

== ENCOUNTER → 2017-03-14 | Outpatient (CLI) | payer MEDICARE, OTHER ==
[2017-03-14 10:19] LABS: ALBUMIN 3.2 gm/dL (3.5-5.0); TOTAL BILIRUBIN 0.9 mg/dL (0.0-1.5); TOTAL PROTEIN 6.7 g/dL (6.0-8.4)
== END | disposition disaster alternative care site (69) ==
LOC: LGSOS 09:44
PROVIDERS: Internal Medicine Interventional Cardiology
DX: E78.5 Hyperlipidemia, unspecified (principal)